=== PATIENT | female | born 1980 | race African-American/Black ===

== ENCOUNTER 2021-10-14 17:23 | Observation (INO) ==
[2021-10-14 18:21] LABS: Basophils % 0.3 % (0.0-0.8); Eosinophils # 0.1 10*3/uL (0.0-0.87); Eosinophils % 1.1 % (0.00-10.9); Hematocrit 34.6 VOL% (35.7-47.0); Hemoglobin 10.9 GM/DL (12.0-16.0); Immature Granulocytes % 0.3 %; Immature Granulocytes Absolute 0.02 #; Lymphocytes # 3.4 10*3/uL (1.4-4.0); Lymphocytes % 46.5 % (21.3-54.2); Mean Corpuscular HGB Conc 31.5 GM/DL (32-36); Mean Corpuscular Volume 81.6 FL (87-102); Mean Platelet Volume 8.6 FL (9.6-12.0); Monocytes % 8.4 % (1.7-12.7); Neutrophils % 43.4 % (38.7-73.9); Platelet Count 342 T/CUMM (130-400); Red Blood Count 4.24 MC/CUMM (3.8-5.5); Red Cell Distribution Width 15.6 % (9.3-17.3); White Blood Count 7.3 T/CUMM (4-12)
[2021-10-14 18:36] LABS: Albumin 3.8 G/DL (3.4-5.0); Bilirubin,Total 0.4 MG/DL (0.20-1.00); Calcium 9.3 MG/DL (8.5-10.1); Osmolality,Calculated 272.7 MOS/KG (273-304); Potassium 3.6 MMOL/L (3.5-5.1); Total Protein 7.1 G/DL (6.4-8.2)
[2021-10-14] MEDS ORDERED: ENOXAPARIN 100 MG/ML SYRINGE SUBCUT STA (19:32)
[2021-10-15] MEDS ORDERED: SODIUM CHLORIDE 0.9% 1,000 ML IV SCH (00:34)
[2021-10-15] MEDS ORDERED: ONDANSETRON 4 MG/2 ML VIAL IV PRN (00:34)
[2021-10-15] MEDS ORDERED: ACETAMINOPHEN 325 MG TABLET PO PRN (00:34)
[2021-10-15] MEDS ORDERED: MORPHINE 2 MG/1 ML SYRINGE IV PRN (00:34)
[2021-10-15] MEDS: DOCUSATE SODIUM 100 MG CAPSULE PO SCH ×2 (00:43→11:24)
[2021-10-15] MEDS: NITROGLYCERIN 2% OINT 1 INCH/GM PACK TOP SCH ×3 (00:45→13:20)
[2021-10-15] MEDS ORDERED: MORPHINE 4 MG/1 ML VIAL IV PRN (01:00)
[2021-10-15 05:36] LABS: Basophils % 0.3 % (0.0-0.8); Eosinophils # 0.1 10*3/uL (0.0-0.87); Eosinophils % 1.3 % (0.00-10.9); Hematocrit 34.2 VOL% (35.7-47.0); Hemoglobin 10.7 GM/DL (12.0-16.0); Immature Granulocytes % 0.2 %; Immature Granulocytes Absolute 0.01 #; Lymphocytes # 3.5 10*3/uL (1.4-4.0); Lymphocytes % 56.1 % (21.3-54.2); Mean Corpuscular HGB Conc 31.3 GM/DL (32-36); Mean Corpuscular Volume 81.8 FL (87-102); Mean Platelet Volume 9.3 FL (9.6-12.0); Monocytes % 7.4 % (1.7-12.7); Neutrophils % 34.7 % (38.7-73.9); Platelet Count 290 T/CUMM (130-400); Red Blood Count 4.18 MC/CUMM (3.8-5.5); Red Cell Distribution Width 15.4 % (9.3-17.3); White Blood Count 6.2 T/CUMM (4-12)
[2021-10-15 06:01] LABS: Atypical Lymphocytes Few; Eosinophils 2 % (0-10); Hypochromia Slight; Lymphocytes 67 % (20-55); Microcytosis Slight; Platelet Estimate Adequate; Segmented Neutrophils 27 % (50-85); Total Cells Counted 100
[2021-10-15 06:32] LABS: Albumin 3.2 G/DL (3.4-5.0); Bilirubin,Total 2.4 MG/DL (0.20-1.00); Calcium 8.5 MG/DL (8.5-10.1); Osmolality,Calculated 272.7 MOS/KG (273-304); Potassium 3.4 MMOL/L (3.5-5.1); Risk Ratio 4.74; Total Protein 6.3 G/DL (6.4-8.2); VLDL Cholesterol 33.4 MG/DL
[2021-10-15] MEDS ORDERED: ASPIRIN EC 325 MG TABLET PO SCH (09:00)
[2021-10-15] MEDS ORDERED: PANTOPRAZOLE 40 MG TABLET PO SCH (09:00)
[2021-10-15] MEDS ORDERED: ALBUTEROL 2.5 MG/3 ML NEB RESP TX PRN (11:06)
[2021-10-15 12:54] VITALS: BP 102/61
[2021-10-15] MEDS ORDERED: ENOXAPARIN 40 MG/0.4 ML SYRINGE SUBCUT SCH (21:00)
== END 2021-10-15 14:44 | disposition home or self-care (01) ==
LOC: N.TELES 17:23 → N.ED 17:23 → N.TELES 10-15 01:16
PROVIDERS: ADMIT Family Medicine; ATTEND Family Medicine